=== PATIENT | male | born 1985 | race Caucasian/White ===

== ENCOUNTER 2017-08-10 08:50 | Emergency (ER) | payer OTHER, BC ==
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
--- NOTE | 2017-08-10 09:18 | CT ---
CT cervical spine Technique: Multiple axial sections were obtained from above the C1 inferiorly to the bottom of T1. Reconstructed coronal and sagittal images were reviewed. Findings: Vertebral body heights and disc spaces are maintained. Vertebral bodies and posterior arches are intact. No fracture is seen. No bony central or bony neural foraminal stenosis is seen. No abnormal subluxation is seen. Impression: 1. Nothing acute is identified on CT study of the cervical spine. Diagnostic code #1
--- NOTE | 2017-08-10 09:20 | CT ---
Head CT Technique: Multiple axial sections through the brain were obtained. Intravenous contrast was not utilized. Comparison: No previous intracranial imaging. Findings: Soft tissue swelling is noted within the right side of the scalp. Ventricles along with basal cisterns and sulci over convexities are within normal limits for the patient's age. No abnormal parenchymal densities are seen. No evidence of intracranial hemorrhage. No midline shift or mass effect is seen. Bone window settings were reviewed which shows mild mucosal thickening within the right side of the ethmoid sinus which is felt to be incidental. No acute calvarial abnormality is seen. Impression: 1. Minimal sinus finding which is felt to be incidental. 2. Soft tissue swelling within the right side of the scalp. 3. No acute intracranial abnormality or acute skull fracture is seen. Diagnostic code #2
--- NOTE | 2017-08-10 09:37 | CR ---
Chest: Frontal view of the chest was obtained utilizing portable technique. Comparison: No previous chest x-ray. Old healed fracture deformity within the mid shaft of the clavicle is seen. Lucent line is also identified within the distal left clavicle near the acromioclavicular joint compatible with acute nondisplaced fracture. No other discrete bony abnormality is seen. Heart size and mediastinum are normal. Lungs are clear. Impression: 1. Findings compatible with acute nondisplaced fracture within the distal left clavicle near the acromioclavicular joint. 2. Nothing acute is otherwise seen on frontal chest x-ray. Diagnostic code #3
== END 2017-08-10 10:21 | disposition home or self-care (01) ==
LOC: JD.ED 08:50
DX: S42.035A Nondisplaced fracture of lateral end of left clavicle, initial encounter for closed fracture (principal); S16.1XXA Strain of muscle, fascia and tendon at neck level, initial encounter; S00.01XA Abrasion of scalp, initial encounter; V59.9XXA Occupant (driver) (passenger) of pick-up truck or van injured in unspecified traffic accident, initial encounter
CPT/HCPCS: 70450; 70450-26; 71045; 71045-26; 72125; 72125-26; 99284; 99285-25